=== PATIENT | male | born 1970 | race Caucasian/White ===

== ENCOUNTER → 2020-09-06 | Day surgery (SDC) | payer OTHER ==
[~2020-09-06] VITALS: Ht 185.4 cm; Wt 145.1 kg
[~2020-09-06] MED LIST: MILK THISTLE PO; NEXIUM40 MG PO
== END | disposition home or self-care (01) ==
LOC: FAS 07:29
DX: Z12.11 Encounter for screening for malignant neoplasm of colon (principal); K21.9 Gastro-esophageal reflux disease without esophagitis; L57.0 Actinic keratosis; G47.30 Sleep apnea, unspecified; M19.90 Unspecified osteoarthritis, unspecified site; Z87.19 Personal history of other diseases of the digestive system; Z90.49 Acquired absence of other specified parts of digestive tract; Z98.52 Vasectomy status; Z82.49 Family history of ischemic heart disease and other diseases of the circulatory system; Z80.0 Family history of malignant neoplasm of digestive organs; Z87.891 Personal history of nicotine dependence; Z20.822 Contact with and (suspected) exposure to COVID-19; Z99.89 Dependence on other enabling machines and devices
CPT/HCPCS: 11402; G0121; J2001; J2250; J2704; J7120